=== PATIENT | female | born 1985 | race Caucasian/White ===

== ENCOUNTER 2017-03-28 03:21 | Emergency (ER) | payer BC, OTHER ==
[2017-03-28] MEDS ORDERED: ONDANSETRON HCL/PF 4 MG/ 2ML VIAL ONE (04:07)
[2017-03-28] MEDS ORDERED: Lidocaine 2%Visc 15ml 20 MG/ML UDC ONE (04:08)
[2017-03-28] MEDS ORDERED: MAGNESIUM HYDROXIDE/AL HYDROX 30 ML UDC PO ONE (04:08)
[2017-03-28] MEDS: ONDANSETRON HCL/PF 4 MG/ 2ML VIAL IVP ONE (04:10)
[2017-03-28] MEDS ORDERED: KETOROLAC TROMETHAMINE 30 MG/1ML VIAL ONE (04:18)
[2017-03-28] MEDS: 0.9 % SODIUM CHLORIDE 1,000 ML IV ONE (04:20)
[2017-03-28] MEDS: KETOROLAC TROMETHAMINE 30 MG/1ML VIAL IVP ONE (04:20)
[2017-03-28] MEDS: MAG HYDROX/AL HYDROX/SIMETH 30 ML, Lidocaine 2%Visc 15ml 20 MG, PHENobarb/HYOSCY/ATROPI... PO ONE ×3 (04:30)
[2017-03-28 04:34] LABS: eGFR (African) > 60; eGFR (Non-African) > 60
[2017-03-28 04:40] LABS: BASOPHILS % 0.9 (0.0-1.5); EOSINOPHILS % 1.3 % (0.0-6.8); MEAN CORPUSCULAR VOLUME 83.5 fl (80.0-100.0); MONOCYTES % 4.6 % (0.0-11.0); NEUTROPHILS # 6.8 # k/uL (1.4-7.7)
--- NOTE | 2017-03-28 04:43 | ED Physician Documentation ---
General Adult - HISTORIAN Historian: patient - HPI Stated Complaint: chest/epigastric pain Chief Complaint: General Adult Additional Information: Intermittent chest pain for months. Got up at 0200 to get a drink of flavored water. Burning started from abdomen to chest to back. Pain sometimes goes to knees. Pain is sharp and pressure. Lying or sitting makes pain worse. Vomited in ER and that made it feel better. Normal bowel movement in ER. - ROS CONST: no problems - PAST HX Past History: none Allergies/Adverse Reactions: Allergies Allergy/AdvReac Type Severity Reaction Status Date / Time No Known Drug Allergies Allergy Verified 03/28/17 03:37 Home Medications: Ambulatory Orders Medication Instructions Recorded NK [NK] 03/28/17 - SOCIAL HX Smoking History: non-smoker - FAMILY HX Family History: No - VITAL SIGNS Vital Signs: Vital Signs Temp Pulse Resp BP Pulse Ox 98.1 F 68 18 143/80 99 03/28/17 03:21 03/28/17 03:21 03/28/17 03:21 03/28/17 03:21 03/28/17 03:21 - REVIEWED ASSESSMENTS Nursing Assessment Reviewed: Yes Vitals Reviewed: Yes Progress - Progress Progress: Chest 2 views History: Chest pain Findings: The lungs are clear and well expanded without infiltrate or pleural effusion. Heart size and pulmonary vascularity are normal. Osseous structures are grossly intact. Impression: Normal. Electronically signed on Mar 28, 2017 4:40:45 AM CDT by: Andrea Carrillo EKG: sinus rhythm, 69 BPM, no ischemic changes 1518, sleeping, pink. Pain improved. Labs good. ED Results Lab/Radiology - Lab Results Lab Results: Lab Results 03/28/17 03/28/17 04:15 04:15 WBC 10.40 K/ul K/ul (4.00-12.00) RBC 4.92 M/ul M/ul (3.90-5.20) Hgb 13.3 g/dL g/dL (12.0-16.0) Hct 41.1 % % (34.5-46.5) MCV 83.5 fl fl (80.0-100.0) MCH 27.0 pg L pg (28.0-34.0) MCHC 32.4 g/dL g/dL (30.0-36.0) RDW 13.0 % % (11.3-14.3) Plt Count 270 K/mm3 K/mm3 (130-400) Neut % (Auto) 65.1 % % (39.0-79.0) Lymph % (Auto) 26.9 % % (16.0-50.0) Bracken % (Auto) 4.6 % % (0.0-11.0) Eos % (Auto) 1.3 % % (0.0-6.8) Baso % (Auto) 0.9 (0.0-1.5) Neut # (Auto) 6.8 # k/uL # k/uL (1.4-7.7) Lymph # (Auto) 2.8 # k/uL # k/uL (0.6-4.0) Bracken # (Auto) 0.5 # k/uL # k/uL (0.0-0.9) Eos # (Auto) 0.1 # k/uL # k/uL (0.0-0.6) Baso # (Auto) 0.1 # k/uL # k/uL (0.0-0.5) Reactive Lymphs % 1.1 % % (0.0-5.0) Reactive Lymphs # 0.1 # k/uL # k/uL (0.0-0.8) Sodium 143 mmol/L mmol/L (136-145) Potassium 3.2 mmol/L L mmol/L (3.5-5.0) Chloride 107 mmol/L mmol/L (98-110) Carbon Dioxide 29 mmol/L mmol/L (20-32) BUN 14 mg/dL mg/dL (10-26) Creatinine 0.7 mg/dL mg/dL (0.4-1.5) Estimated Creat Clear 179 Est GFR ( Amer) > 60 (60 - ) Est GFR (Non-Af Amer) > 60 (60 - ) Glucose 125 mg/dL H mg/dL (70-99) Calcium 9.8 mg/dL mg/dL (8.5-10.5) Total Bilirubin 0.3 mg/dL mg/dL (0.2-1.2) AST 15 U/L U/L (0-41) ALT 21 U/L U/L (0-45) Alkaline Phosphatase 70 U/L U/L (46-116) Total Protein 7.6 g/dL g/dL (6.0-8.5) Albumin 4.6 g/dL g/dL (3.0-5.5) - Orders Orders: ED Orders Category Date Time Status Place IV Lock 1T Care 03/28/17 04:08 Ordered CHEST 2 VIEW [CHEST P.A.&LAT 2 VIEWS] [RAD] Stat Exams 03/28/17 Ordered CBC/PLATELET/DIFF Routine Lab 03/28/17 Ordered CMP Routine Lab 03/28/17 Ordered UA [URINALYSIS] Routine Lab 03/28/17 Ordered URINE HCG [URINE HCG] Stat Lab 03/28/17 Uncollected Gi Cocktail Med 03/28/17 04:08 Ordered Mag Hydrox/Al Hydrox/Simeth [Mylanta] 30 ml Lidocaine 2%Visc 15ml [Xylocaine] 20 mg PHENobarb/HYOSCY/ATROPINE/SCOP [] 10 ml PO NOW Ketorolac Tromethamine [Toradol] Med 03/28/17 04:18 Discontinued 30 mg .ROUTE .STK-MED ONE Ketorolac Tromethamine [Toradol] Med 03/28/17 04:16 Once 30 mg IVP NOW ONE Lidocaine 2%Visc 15ml [Xylocaine] Med 03/28/17 04:08 Discontinued 300 mg .ROUTE .STK-MED ONE Magnesium Hydroxide/Al Hydrox [Maalox] Med 03/28/17 04:08 Discontinued 30 ml PO .STK-MED ONE NORMAL SALINE @ 1000 MLS/HR ( 1000ml BOLUS) Med 03/28/17 04:14 Ordered 0.9 % Sodium Chloride [Normal Saline] 1,000 ml IV Q1H Ondansetron HCl/Pf [Zofran 4 mg/2 ml] Med 03/28/17 04:07 Discontinued 4 mg .ROUTE .STK-MED ONE Ondansetron HCl/Pf [Zofran 4 mg/2 ml] Med 03/28/17 04:08 Once 4 mg IVP NOW ONE EKG WITH COMPARISON Stat Ther 03/28/17 Ordered General Adult Physical Exam - PHYSICAL EXAM GENERAL APPEARANCE: moderate distress EENT: eye inspection normal, other (Poor dentition throughout. Discolored teeth. Erythematous gingiva.) NECK: normal inspection, supple RESPIRATORY: no resp distress, chest non-tender, breath sounds normal CVS: reg rate & rhythm, heart sounds normal ABDOMEN: soft, normal bowel sounds, no distension, non-tender RECTAL: deferred BACK: normal inspection, no CVA tenderness, other (no vertebral tenderness) SKIN: warm/dry, normal color EXTREMITIES: normal range of motion (gait), no evidence of injury NEURO: CN's nml as tested, motor nml, sensation nml Discharge Clincal Impression: Acid indigestion Referrals: Primary Doctor,No [Primary Care Provider] - 2 Days Additional Instructions: Take the omeprazole as prescribed. Drink plenty of water. Don't eat for two hours before going to bed. Home Medications: Ambulatory Orders NK [NK] 03/28/17 Condition: Good Disposition: 01 HOME, SELF-CARE Decision to Admit: NO Decision Time: 05:18
[2017-03-28] MEDS ORDERED: PANTOPRAZOLE SODIUM INJ. 40 MG VIAL ONE (04:48)
[2017-03-28] MEDS ORDERED: 0.9 % SODIUM CHLORIDE 100 ML IV ONE (04:48)
[2017-03-28] MEDS: PANTOPRAZOLE SODIUM 40 MG in 0.9 % SODIUM CHLORIDE 50 ML IV SCH (04:54)
--- NOTE | 2017-03-28 04:54 | Diagnostic Imaging Report ---
DELGADO PETIT - KARTHIKEYAN~ [facility] [address] [facility] [address] [place], [place]. [address] ~ ~ ~ ~ Report Submission Date: Mar 28, 2017 4:40:45 AM CDT Patient ~ Study Name: KATHERYN MARY ~ Date: Mar 28, 2017 4:24:34 AM CDT ~ Modality Type: CR Gender: O ~ Description: CHEST : ~ Institution: [facility] Physician: DELGADO PETIT ~ ~ ~ ~ Chest 2 views History: Chest pain Findings: The lungs are clear and well expanded without infiltrate or pleural effusion. Heart size and pulmonary vascularity are normal. Osseous structures are grossly intact. Impression: Normal. ~ Electronically signed on Mar 28, 2017 4:40:45 AM CDT by: Andrea VALDEZ
[2017-03-28 05:58] VITALS: BP 118/65
== END 2017-03-28 05:39 | disposition home or self-care (01) ==
LOC: ED 03:21
DX: K21.9 Gastro-esophageal reflux disease without esophagitis (principal)
CPT/HCPCS: 71020; 80053; 84484; 85025; 93005; A9270; J1885; J2405; J7030; 96361; 96374; 96375; 99283; S1016

== ENCOUNTER 2017-04-04 03:23 | Emergency (ER) | payer BC ==
--- NOTE | 2017-04-04 03:33 | ED Physician Documentation ---
General Adult - HISTORIAN Historian: patient - HPI Chief Complaint: Abdominal Pain Onset: other (several months) Timing: still present (started at 2200 tonight) Severity: moderate Further Comments: yes (Patient has several month history of abd pain . Sharp epigastric pain. episodic in nature, seems worse with stress; sometimes a heating pad helps. Sometimes Ibuprofen helps. Will have 2 sodas a day, occasional EtOH, no tobacco. Sometimes taking in some water helps. Has vomited some, no blood noted. Was seen one week ago with similar symptoms and started on omeprazole. at that time and she has been taking it on a regualr basis.) Last known Well Date: 04/03/17 Last Known Well Time: 22:00 Last known Well Code/Unknown Code: Known - ROS CONST: denies: fever, chills - PAST HX Past History: none Other History: none Surgeries/Procedures: none - SOCIAL HX Smoking History: non-smoker Alcohol Use: rarely Drug Use: none - FAMILY HX Family History: No - VITAL SIGNS Vital Signs: Vital Signs Temp Pulse Resp BP Pulse Ox 118/65 03/28/17 05:55 - REVIEWED ASSESSMENTS Nursing Assessment Reviewed: Yes Vitals Reviewed: Yes <Cora Palacios - Last Filed: 04/04/17 05:48> - VITAL SIGNS Vital Signs: Vital Signs Temp Pulse Resp BP Pulse Ox 98.1 F 71 16 130/82 99 04/04/17 03:25 04/04/17 03:25 04/04/17 03:25 04/04/17 03:25 04/04/17 03:25 <Brady Grace - Last Filed: 04/04/17 07:18> - PAST HX Allergies/Adverse Reactions: Allergies Allergy/AdvReac Type Severity Reaction Status Date / Time No Known Drug Allergies Allergy Verified 04/04/17 03:32 Home Medications: Ambulatory Orders Medication Instructions Recorded Omeprazole 20 mg PO DAILY #30 capsule. 03/28/17 Medroxyprogesterone Acetate 150 mg IM Q3 04/04/17 [Depo-Provera] Progress - Progress Progress: 05:33 Patient states that the pain in her stomach improved but is getting them again, nausea is improved <Cora Palacios - Last Filed: 04/04/17 05:48> - Progress Progress: Transfer to . Hosp. Dr. Manley. <Brady Grace - Last Filed: 04/04/17 07:18> ED Results Lab/Radiology - Radiology Radiology Impressions: Patient Study Name: KATHERYN MARY Date: Apr 04, 2017 5:16:39 AM CDT Modality Type: CT\SR Gender: O Description: CT ABD & PELVIS W/ CON : Institution: [facility] [place] [facility] Physician: CORA PALACIOS - KARTHIKEYAN Computed tomography of the abdomen and pelvis with contrast History: Right upper quadrant pain, nausea, vomiting Findings: Transverse abdomen and pelvis sections are obtained after 90 mL intravenous omnipaque 350. Gallbladder distention and gallbladder wall thickening are present without biliary duct dilatation. The liver, spleen, pancreas, adrenals kidneys, great vessels, and mesenteric structures are unremarkable. Bowel loops exhibit normal caliber and wall thickness. The appendix measures 7 mm in diameter and is nearly gasless. Shotty ileocolic mesenteric lymph nodes are present. Pelvic sections reveal normal sized uterus and ovaries. Pelvic bowel loops and urinary bladder are unremarkable. No acute pelvic abnormality is observed. Impression: 1. Gallbladder distention and wall edema suggest acute cholecystitis. Recommend ultrasound followup. 2. Nearly gasless and borderline distended appendix. Differential includes normal variation versus early acute appendicitis. Recommend clinical followup and management. If clinical findings are equivocal, consider noncontrast CT followup in 1 day. 3. Shotty ileocolic mesenteric lymph nodes. <Cora Palacios - Last Filed: 04/04/17 05:48> - Lab Results Lab Results: Lab Results 04/04/17 04/04/17 04/04/17 06:50 06:30 04:10 WBC 13.08 K/ul H K/ul 6.30 K/ul K/ul (4.00-12.00) (4.00-12.00) RBC 4.60 M/ul M/ul 2.41 M/ul L M/ul (3.90-5.20) (3.90-5.20) Hgb 13.5 g/dL g/dL 7.0 g/dL L g/dL (12.0-16.0) (12.0-16.0) Hct 38.7 % % 20.9 % L % (34.5-46.5) (34.5-46.5) MCV 83.9 fl fl 87.0 fl fl (80.0-100.0) (80.0-100.0) MCH 29.4 pg pg 28.9 pg pg (28.0-34.0) (28.0-34.0) MCHC 35.0 g/dL g/dL 33.2 g/dL g/dL (30.0-36.0) (30.0-36.0) RDW 12.6 % % 12.4 % % (11.3-14.3) (11.3-14.3) Plt Count 238 K/mm3 K/mm3 139 K/mm3 K/mm3 (130-400) (130-400) Neut % (Auto) 93.5 % H % 92.0 % H % (39.0-79.0) (39.0-79.0) Lymph % (Auto) 4.4 % L % 4.8 % L % (16.0-50.0) (16.0-50.0) Tucker % (Auto) 1.4 % % 2.4 % % (0.0-11.0) (0.0-11.0) Eos % (Auto) 0.2 % % 0.4 % % (0.0-6.8) (0.0-6.8) Baso % (Auto) 0.3 0.2 (0.0-1.5) (0.0-1.5) Neut # (Auto) 12.2 # k/uL H # k/uL 5.8 # k/uL # k/uL (1.4-7.7) (1.4-7.7) Lymph # (Auto) 0.6 # k/uL # k/uL 0.3 # k/uL L # k/uL (0.6-4.0) (0.6-4.0) Tucker # (Auto) 0.2 # k/uL # k/uL 0.2 # k/uL # k/uL (0.0-0.9) (0.0-0.9) Eos # (Auto) 0.0 # k/uL # k/uL 0.0 # k/uL # k/uL (0.0-0.6) (0.0-0.6) Baso # (Auto) 0.0 # k/uL # k/uL 0.0 # k/uL # k/uL (0.0-0.5) (0.0-0.5) Reactive Lymphs % 0.3 % % 0.2 % % (0.0-5.0) (0.0-5.0) Reactive Lymphs # 0.0 # k/uL # k/uL 0.0 # k/uL # k/uL (0.0-0.8) (0.0-0.8) Sodium 141 mmol/L mmol/L (136-145) Potassium 3.7 mmol/L mmol/L (3.5-5.0) Chloride 107 mmol/L mmol/L (98-110) Carbon Dioxide 23 mmol/L mmol/L (20-32) BUN 12 mg/dL mg/dL (10-26) Creatinine 0.5 mg/dL mg/dL (0.4-1.5) Estimated Creat Clear 251 Est GFR ( Amer) > 60 (60 - ) Est GFR (Non-Af Amer) > 60 (60 - ) Glucose 152 mg/dL H mg/dL (70-99) Calcium 9.0 mg/dL mg/dL (8.5-10.5) Total Bilirubin 0.3 mg/dL mg/dL (0.2-1.2) AST 17 U/L U/L (0-41) ALT 20 U/L U/L (0-45) Alkaline Phosphatase 69 U/L U/L (46-116) Total Protein 7.7 g/dL g/dL (6.0-8.5) Albumin 4.6 g/dL g/dL (3.0-5.5) - Orders Orders: ED Orders Category Date Time Status Place IV Lock 1T Care 04/04/17 03:[address] ABDOMEN PELVIS C [CT ABD & PELVIS W/ CON] Stat Exams 04/04/17 Completed AMYLASE Routine Lab 04/04/17 04:10 Received CBC AUTO DIFF Routine Lab 04/04/17 06:50 Completed CBC/PLATELET/DIFF Routine Lab 04/04/17 04:10 Completed CMP Routine Lab 04/04/17 04:10 Received CMP Routine Lab 04/04/17 06:30 Completed HCG [SERUM HCG] Routine Lab 04/04/17 04:10 Stop Req URINALYSIS Routine Lab 04/04/17 04:05 Ordered URINE HCG Routine Lab 04/04/17 Ordered 0.9 % Sodium Chloride [Normal Saline] 1,000 ml Med 04/04/17 04:00 Ordered IV .Q1H Ketorolac Tromethamine [Toradol] Med 04/04/17 03:44 Discontinued 30 mg IVP NOW ONE Ondansetron HCl/Pf [Zofran 4 mg/2 ml] Med 04/04/17 03:44 Discontinued 4 mg IVP NOW ONE fentaNYL CITRATE/PF [Duragesic] Med 04/04/17 05:36 Discontinued 50 mcg IVP NOW ONE <Brady Grace - Last Filed: 04/04/17 07:18> General Adult Physical Exam - PHYSICAL EXAM GENERAL APPEARANCE: mild distress EENT: ENT inspection normal, pharynx normal, no signs of dehydration NECK: normal inspection, supple. No: lymphadenopathy, stiff neck RESPIRATORY: no resp distress, chest non-tender, breath sounds normal. No: wheezes, rales, rhonchi CVS: reg rate & rhythm, heart sounds normal, equal pulses, no murmur, no gallop ABDOMEN: soft, normal bowel sounds, no distension, tenderness (epigastric and RUQ/LUQ area.). No: rebound BACK: normal inspection, CVA tenderness (R) (mild), CVA tenderness (L) (mild) SKIN: warm/dry NEURO: oriented X3, CN's nml as tested, mood/affect nml <Cora Palacios - Last Filed: 04/04/17 05:48> - PHYSICAL EXAM ABDOMEN: tenderness <Brady Grace - Last Filed: 04/04/17 07:18> Discharge <Cora Palacios - Last Filed: 04/04/17 05:48> Decision to Admit: NO Decision Time: 07:18 <Brady Grace - Last Filed: 04/04/17 07:18> Clincal Impression: abd pain, acute cholecystitis, possible eary appendicitis Referrals: Primary Doctor,No [Primary Care Provider] - 2 Days Home Medications: Ambulatory Orders Omeprazole 20 mg PO DAILY #30 capsule. 03/28/17 Medroxyprogesterone Acetate [Depo-Provera] 150 mg IM Q3 04/04/17 Condition: Fair Disposition: 02 XFER [facility]
[2017-04-04] MEDS: KETOROLAC TROMETHAMINE 30 MG/1ML VIAL IVP ONE (03:55)
[2017-04-04] MEDS: ONDANSETRON HCL/PF 4 MG/ 2ML VIAL IVP ONE (03:56)
[2017-04-04] MEDS: 0.9 % SODIUM CHLORIDE 1,000 ML IV SCH (04:21)
--- NOTE | 2017-04-04 05:42 | Diagnostic Imaging Report ---
CORA PALACIOS [facility] [address] [facility] [address] [place], [place]. [address] Report Submission Date: Apr 04, 2017 5:41:56 AM CDT Patient Study Name: KATHERYN MARY Date: Apr 04, 2017 5:16:39 AM CDT Modality Type: CT\SR Gender: O Description: CT ABD & PELVIS W/ CON : Institution: [facility] Physician: CORA PALACIOS Computed tomography of the abdomen and pelvis with contrast History: Right upper quadrant pain, nausea, vomiting Findings: Transverse abdomen and pelvis sections are obtained after 90 mL intravenous omnipaque 350. Gallbladder distention and gallbladder wall thickening are present without biliary duct dilatation. The liver, spleen, pancreas, adrenals kidneys, great vessels, and mesenteric structures are unremarkable. Bowel loops exhibit normal caliber and wall thickness. The appendix measures 7 mm in diameter and is nearly gasless. Shotty ileocolic mesenteric lymph nodes are present. Pelvic sections reveal normal sized uterus and ovaries. Pelvic bowel loops and urinary bladder are unremarkable. No acute pelvic abnormality is observed. Impression: 1. Gallbladder distention and wall edema suggest acute cholecystitis. Recommend ultrasound followup. 2. Nearly gasless and borderline distended appendix. Differential includes normal variation versus early acute appendicitis. Recommend clinical followup and management. If clinical findings are equivocal, consider noncontrast CT followup in 1 day. 3. Shotty ileocolic mesenteric lymph nodes. Electronically signed on Apr 04, 2017 5:41:56 AM CDT by: Andrea VALDEZ
[2017-04-04] MEDS: fentaNYL CITRATE/PF 100 MCG/ 2ML AMP IVP ONE ×2 (05:50→07:30)
[2017-04-04] MEDS ORDERED: 0.9 % SODIUM CHLORIDE 1,000 ML IV ONE (05:57)
[2017-04-04 06:48] LABS: eGFR (African) > 60; eGFR (Non-African) > 60
[2017-04-04 06:55] LABS: BASOPHILS % 0.3 (0.0-1.5); EOSINOPHILS % 0.2 % (0.0-6.8); MEAN CORPUSCULAR HEMOGLOBIN 29.4 pg (28.0-34.0); MEAN CORPUSCULAR VOLUME 83.9 fl (80.0-100.0); MONOCYTES % 1.4 % (0.0-11.0); NEUTROPHILS # 12.2 # k/uL (1.4-7.7)
[2017-04-04 07:38] VITALS: BP 128/72
[2017-04-05 09:32] LABS: APPEARANCE,URINE CLOUDY (CLEAR); COLOR,URINE YELLOW (YELLOW); OCCULT BLOOD,URINE NEGATIVE (NEGATIVE); PH URINE 7.5 (5.0 - 8.0); URINE HCG NEGATIVE (NEGATIVE); UROBILINOGEN URINE 0.2 Eu (0.2-1.0)
== END 2017-04-04 07:36 | disposition short-term general hospital (02) ==
LOC: ED 03:23
DX: K81.0 Acute cholecystitis (principal); R10.9 Unspecified abdominal pain
CPT/HCPCS: 74177; 80053; 82150; 84703; 85025; J1885; J2405; J3010; J7030; Q9966; 81002; 81025; 96361; 96374; 96375; 99284

== ENCOUNTER 2018-01-18 13:50 | Outpatient (CLI) | payer BC ==
--- NOTE | 2018-01-18 16:53 | Diagnostic Imaging Report ---
AGUSTÍN NEVES [facility] [address] [facility] [address] [address] Report Submission Date: January 18, 2018 3:01:51 PM CDT Patient Study Name: KATHERYN MARY Date: January 18, 2018 2:04:33 PM CDT Modality Type: DX Gender: F Description: LOWER EXTREMITY : 89 Institution: [facility] Physician: AGUSTÍN NEVES Examination: Plain film left foot History: PT C/O MEDIAL LEFT FOOT PAIN X 1 MONTH. PT STATES SHE ROLLED FOOT AND HEARD A "POP" AND HAS HAD PAIN SINCE THE INJURY (Hx) Findings: 3 views of the left foot demonstrates normal cortical margins. No fracture or dislocation. No soft tissue swelling. No joint effusion. Impression: No acute osseous process. Electronically signed on January 18, 2018 3:01:51 PM CDT by: Randall VALDEZ
== END 2018-01-18 13:53 ==
LOC: RAD 13:50
PROVIDERS: ATTEND Physician Assistant
DX: S99.922A Unspecified injury of left foot, initial encounter (principal); Y99.9 Unspecified external cause status
CPT/HCPCS: 73630

== ENCOUNTER 2019-02-23 15:20 | Emergency (ER) | payer BC | END 2019-02-23 15:53 | LOC: ED 15:20 | DX: H92.01 Otalgia, right ear (principal) ==